=== PATIENT | female | born 1985 | race Caucasian/White ===

== ENCOUNTER 2021-03-03 17:55 | Emergency (ER) | payer OTHER, SELFPAY ==
--- NOTE | 2021-03-03 17:58 | ED.SKABFB ---
HPI - Skin/Abscess/Foreign Bdy General Chief complaint: Skin/Abscess/Foreign Body Stated complaint: bug bite on right leg Time Seen by Provider: 03/03/21 17:58 Source: patient and RN notes reviewed History of Present Illness HPI narrative: Patient is a 36-year-old female who presents the urgent care with complaints of a bug bite to the right lower leg. Patient states she noticed it approximately 2 to 3 days ago and the pain, swelling and warmth has increased over the last 24 hours. Patient states that she took Tylenol yesterday and covered it with a bandage and Neosporin today. Denies any fever, chills, nausea, vomiting. No other acute complaints. No acute distress noted. Patient aware of the plan of care. Some parts of this dictation were generated by voice recognition software and may contain typographical and/or grammatical inaccuracies. Related Data Home Medications Medication Instructions Recorded Confirmed etonogestrel-ethinyl estradiol 1 vag ring VAGINAL ONCE 03/03/21 03/03/21 [NuvaRing] Allergies Allergy/AdvReac Type Severity Reaction Status Date / Time No Known Allergies Allergy Verified 03/03/21 18:06 Review of Systems Review of Systems: CONSTITUTIONAL: Denies fever, chills, or sweats. EYES: Denies visual changes, redness, or discharge. ENT: Denies rhinorrhea, congestion, sore throat, or otalgia. CARDIOVASCULAR: Denies chest pain, palpitations, or edema. RESPIRATORY: Denies cough or dyspnea. GASTROINTESTINAL: Denies abdominal pain, nausea, vomiting, or diarrhea. GENITOURINARY: Denies dysuria or hematuria. SKIN: Reports of an area of redness, swelling and pain from a possible insect bite to the right lower leg MUSCULOSKELETAL: Denies back pain, joint pain, or myalgia. NEUROLOGIC: Denies headache, numbness, or weakness. All other systems reviewed are negative, except as documented in HPI. PMFSH Comments At the time of my signature, I reviewed and agree with the nursing past medical, surgical, social, and family history. There is no relevant family history pertinent to the patient complaint. Exam Narrative: GENERAL: This is a well-nourished, well-developed patient, in no apparent distress. HEAD: normocephalic, atraumatic. EYES: PERRL. Sclera clear/white. Vision is grossly intact. EARS: External ears normal NOSE: External nose normal with no obvious nasal discharge, nares without redness, no rhinorrhea. THROAT: Mucous membranes moist NECK: Neck supple CARDIOVASCULAR: Regular rate and rhythm without murmurs, gallops, or rubs. RESPIRATORY: Clear to auscultation. Breath sounds equal bilaterally. No wheezes, rales, or rhonchi. SKIN: 5 x 5 area of firm warm erythemic region to the right lower lateral leg with pinpoint scabbed center without drainage NEURO: awake, alert, and oriented to person, place and time. There were no obvious focal neurologic abnormalities. EXTREMITIES: No clubbing, cyanosis, or edema. Course Vital Signs Vital signs: Vital Signs Temperature 97.7 F 03/03/21 18:00 Pulse Rate 72 03/03/21 18:00 Respiratory Rate 18 03/03/21 18:00 Blood Pressure 115/78 03/03/21 18:00 Pulse Oximetry 100 03/03/21 18:00 Temperature 97.7 F 03/03/21 18:07 Pulse Rate 72 03/03/21 18:07 Respiratory Rate 18 03/03/21 18:07 Blood Pressure 115/78 03/03/21 18:07 Pulse Oximetry 100 03/03/21 18:07 Reviewed MDM - Skin/Abscess/Foreign Bdy MDM Narrative Medical decision making narrative: Advised the patient to use an ice pack to the area and take Benadryl/antihistamine daily. Take Tylenol/ibuprofen as needed. Complete the oral antibiotic regimen as prescribed. Be sure to eat and drink with the medication to avoid nausea. If you develop any increase in symptoms associate with severe swelling, fever, nausea, vomiting?go to the emergency room. Follow-up with your PCP within 2 to 5 days or for worsening symptoms or failure to improve Differential Diagnosis Differential diagnosis: Like
[2021-03-03 18:00] VITALS: BP 115/78; PULSE 72; RESP 18; TEMP 36.5; O2SAT 100
[2021-03-03 18:07] VITALS: BP 115/78; PULSE 72; RESP 18; TEMP 36.5; O2SAT 100
== END 2021-03-03 18:15 | disposition home or self-care (01) ==
PROVIDERS: Emergency Provider Nurse Practitioner Family
DX: L03.115 Cellulitis of right lower limb (principal); J45.909 Unspecified asthma, uncomplicated
CPT/HCPCS: 99213; G0463